=== PATIENT | female | born 1965 | race American Indian/Alaskan Native ===

== ENCOUNTER 2016-03-23 08:32 | Emergency (ER) | payer OTHER ==
[2016-03-23] MEDS ORDERED: PERCOCET 5/325 PO ONE (13:28)
[2016-03-23] MEDS ORDERED: BOOSTRIX IM ONE (13:28)
--- NOTE | 2016-03-23 14:10 | XRay Report ---
The left thumb: There is a fracture involving the distal half of the distal phalanx. There are multiple fragments with mild separation but relatively good alignment. The DIPs joint is intact. There is overlying soft tissue swelling and lacerations. Of additional note is mild degenerative narrowing of the first carpal metacarpal joint with marginal erosion of the carpal bone. Impressions: Fractured first digit.
[2016-03-23] MEDS ORDERED: NACL 0.9% IR ONE (14:57)
--- NOTE | 2016-03-23 15:10 | Emergency Department Report ---
HPI - General Chief Complaint: Animal Bite Time Seen by Provider: 03/23/16 13:24 - HPI HPI: 50-year-old female presents today with a dog bite to her left thumb. Patient states that she was trying to break a fight between her dog and the neighbor's dog when the neighbor's dog bit her. The dog's vaccination status is up-to- date. Rates her pain as a 7 out of 10. Positive for bleeding. Patient tetanus status unknown. Denies fever, chills, nausea, vomiting, chest pain, shortness of breath, abdominal pain. ED Past Medical Hx - Past Medical History Previous Medical History?: Yes Hx Hypertension: Yes - Surgical History Past Surgical History?: No - Social History Smoking Status: Never Smoker Substance Use Type: Alcohol - Medications Home Medications: Home Medications Medication Instructions Recorded Confirmed Last Taken Type Amoxicillin/K Clav Tab [Augmentin 1 tab PO Q12HR #20 tab 03/23/16 Unknown Rx 875 mg] HYDROcodone/APAP 5-325 [Hannibal 1 each PO Q6HR PRN #14 tablet 03/23/16 Unknown Rx 5/325] Olmesartan/Amlodipin/Hcthiazid 03/23/16 03/23/16 History [Tribenzor 40-10-25 mg] ED Review of Systems ROS: Stated complaint: DOG BITE LT HAND THUMB Other details as noted in HPI Constitutional: denies: chills, fever, malaise Eyes: denies: eye pain ENT: denies: ear pain, throat pain, congestion Respiratory: denies: cough, shortness of breath, wheezing Cardiovascular: denies: chest pain, palpitations Endocrine: no symptoms reported Gastrointestinal: denies: abdominal pain, nausea, vomiting Neurological: numbness. denies: headache Physical Exam - Physical Exam Vital Signs: Vital Signs 03/23/16 09:23 Temperature 98.5 F Pulse Rate 78 Respiratory 16 Rate Blood Pressure 155/87 O2 Sat by Pulse 100 Oximetry Physical Exam: GENERAL: The patient is well-developed and well-nourished. Patient is in NAD. HEAD: Normocephalic. Atraumatic. CHEST/LUNGS: Clear to auscultation throughout. HEART/CARDIOVASCULAR: Regular rate and rhythm. ABDOMEN: Abdomen is soft, nontender. No guarding or rebound tenderness. LEFT THUMB: Full ROM. 2. 5 cm laceration noted wrapping around the distal thumb with nailbed involvement. Positive for active bleeding. Peripheral pulses intact. Unable to examine capillary refill due to nail bed involvement. NEURO: Alert and oriented x 3. Normal gait. ED Course Vital Signs 03/23/16 09:23 Temperature 98.5 F Pulse Rate 78 Respiratory 16 Rate Blood Pressure 155/87 O2 Sat by Pulse 100 Oximetry ED Medical Decision Making - Lab Data Vital Signs 03/23/16 09:23 Temperature 98.5 F Pulse Rate 78 Respiratory 16 Rate Blood Pressure 155/87 O2 Sat by Pulse 100 Oximetry - Radiology Data Radiology results: report reviewed Left thumb x-ray: There is a fracture involving the distal half of the distal phalanx. There are multiple fragments with mild separation but relatively good alignment. The DIP joint is intact. There is overlying soft tissue swelling and lacerations. Of additional note is marked degenerative narrowing of the first carpometacarpal joint with marginal erosion of the carpal bone. - Medical Decision Making 50-year-old female presents today with a dog bite to her left thumb. Her x-ray results reveal fracture involving the distal half of the distal phalanx with multiple fragments, mild separation but relatively good alignment. Consulted with Dr. De León, recommended putting the patient on antibiotics and follow up with orthopedic. He suggested the wound be left open. The wound was copiously irrigated and dressed. Patient was given Ancef [address] Hoff. Patient will be discharged home on Augmentin and Hannibal.Patient is in no acute distress at this time. She will be discharged home and is encouraged to follow up with orthopedics tomorrow. She is encouraged to return to the emergency room for any worsening symptoms. Critical care attestation.: If time is entered above; I have spent that time in minutes in the direct care of this critically ill patient, excluding procedure time. ED Disposition Clinical Impression: Dog bite Qualifiers: Encounter type: initial encounter Qualified Code(s): W54.0XXA - Bitten by dog, initial encounter Disposition: DISCHARGED TO HOME OR SELFCARE Is pt being admited?: No Does the pt Need Aspirin: No Condition: Stable Instructions: Animal Bite (ED) Additional Instructions: Follow-up with orthopedic. Return to the emergency department if symptoms worsen. Prescriptions: Amoxicillin/K Clav Tab [Augmentin 875 mg] 1 tab PO Q12HR #20 tab HYDROcodone/APAP 5-325 [Hannibal 5/325] 1 each PO Q6HR PRN #14 tablet PRN Reason: Pain Referrals: ZION PEÑA MD [Primary Care Provider] - 3-5 Days SUSHMA DE LEÓN MD [Staff Physician] - 3-5 Days Forms: Work/School Release Form(ED) Time of Disposition: 15:19
[2016-03-23] MEDS ORDERED: ANCEF ONE (15:44)
[2016-03-23] MEDS ORDERED: ceFAZolin 2 GM in NACL 0.9% 100 ML IV ONE (16:00)
[2016-03-23 16:43] VITALS: BP 150/82
== END 2016-03-23 17:32 | disposition home or self-care (01) ==
LOC: ED 08:32
DX: S61.012A Laceration without foreign body of left thumb without damage to nail, initial encounter (principal); I10 Essential (primary) hypertension
CPT/HCPCS: 73140; 90471; 90715; 96365; 99283; J0690